=== PATIENT | female | born 1985 | race Caucasian/White ===

== ENCOUNTER 2017-04-05 22:49 | Emergency (ER) | payer BC ==
--- NOTE | 2017-04-05 23:40 | ER Document Report ---
ED General - General Chief Complaint: Headache Stated Complaint: HEAD PAIN Time Seen by Provider: 04/05/17 23:39 Information source: Patient TRAVEL OUTSIDE OF THE [place] IN LAST 30 DAYS: No - HPI Notes: Pt presents with c/o Headache x 4 days. States that pain is mostly in front. No hx of migraines. Pt is hypertensive- no hx of hypertension. A/O, answers questions. Appears to be uncomfortable. No head injury, numbness, paresthesia, focal weakness, chest pain, difficulty breathing, fever, chills, cough, congestion. Patient has no history of medication use besides control pills which are unchanged and occasional Excedrin migraine. Family history no aneurysms or CVA. No significant weight loss or weight gain. No seasonal allergies. Past Medical History - General Information source: Patient - Social History Smoking Status: Never Smoker Frequency of alcohol use: None Drug Abuse: None Lives with: Friend Family History: Reviewed & Not Pertinent Renal/ Medical History: Denies: Hx Peritoneal Dialysis Review of Systems - Review of Systems Notes: REVIEW OF SYSTEMS: CONSTITUTIONAL : Denies fever, chills, or sweats. Denies recent illness. EENT: Denies eye, ear, throat, or mouth pain or symptoms. Denies nasal or sinus congestion or discharge. Denies throat, tongue, or mouth swelling or difficulty swallowing. CARDIOVASCULAR: Denies chest pain. Denies palpitations or racing or irregular heart beat. Denies ankle edema. RESPIRATORY: Denies cough, cold, or chest congestion. Denies shortness of breath, difficulty breathing, or wheezing. GASTROINTESTINAL: Denies abdominal pain or distention. Denies nausea, vomiting , or diarrhea. Denies blood in vomitus, stools, or per rectum. Denies black, tarry stools. Denies constipation. GENITOURINARY: Denies difficulty urinating, painful urination, burning, frequency, blood in urine, or discharge. FEMALE GENITOURINARY: Denies vaginal bleeding, heavy or abnormal periods, irregular periods. Denies vaginal discharge or odor. MUSCULOSKELETAL: Denies back or neck pain or stiffness. Denies joint pain or swelling. SKIN: Denies rash, lesions or sores. HEMATOLOGIC : Denies easy bruising or bleeding. LYMPHATIC: Denies swollen, enlarged glands. NEUROLOGICAL: Denies confusion or altered mental status. Denies passing out or loss of consciousness. Denies dizziness or lightheadedness. Denies weakness or paralysis or loss of use of either side. Denies problems with gait or speech. Denies sensory loss, numbness, or tingling. Denies seizures. PSYCHIATRIC: Denies anxiety or stress. Denies depression, suicidal ideation, or homicidal ideation. ALL OTHER SYSTEMS REVIEWED AND NEGATIVE. Dictation was performed using [employer] voice recognition software Physical Exam - Vital signs Vitals: Temp Pulse Resp BP Pulse Ox 98.7 F 83 18 186/109 H 100 04/05/17 23:09 04/05/17 23:09 04/05/17 23:09 04/05/17 23:09 04/05/17 23:09 - Notes Notes: PHYSICAL EXAMINATION: GENERAL: Well-appearing, well-nourished and in no acute distress. HEAD: Atraumatic, normocephalic. No maxillary or frontal sinus tenderness. No temporal arterial tenderness. There may be mild TMJ joint tenderness, although she describes her pain is more frontal and generalized. Anterior chambers are within normal limits. EYES: Pupils equal round and reactive to light, extraocular movements intact, conjunctiva are normal. ENT: Nares patent, oropharynx clear without exudates. Moist mucous membranes. Tympanic membranes clear. NECK: Normal range of motion, supple without lymphadenopathy LUNGS: Breath sounds clear to auscultation bilaterally and equal. No wheezes rales or rhonchi. HEART: Regular rate and rhythm without murmurs ABDOMEN: Soft, nontender, nondistended abdomen. No guarding, no rebound. No masses appreciated. Female : deferred Musculoskeletal: Normal range of motion, no pitting or edema. No cyanosis. NEUROLOGICAL: Cranial nerves grossly intact. Normal speech, normal gait. Normal sensory, motor exams. No cerebellar ataxia. Normal reflexes. PSYCH: Normal mood, normal affect. SKIN: Warm, Dry, normal turgor, no rashes or lesions noted. Course - Re-evaluation Re-evalutation: 04/06/17 04:05 Patient was given Flexeril Dilaudid and Toradol lisinopril Reglan morphine and Zofran with adequate relief of her headache and her blood pressure was improved on repeat exam. No evidence for end-stage renal disease or significant anemia or electrolyte imbalance or acute intracranial injury or hemorrhage or CVA. One questions TMJ joint syndrome versus headache secondary to mild hypertension. No clinical suggestion for meningitis or subarachnoid hemorrhage given the intermittent episodes of the headache. 04/06/17 04:12 - Vital Signs Vital signs: Temp Pulse Resp BP Pulse Ox 98.7 F 83 24 H 129/77 H 98 04/05/17 23:09 04/05/17 23:09 04/06/17 03:01 04/06/17 03:01 04/06/17 03:01 - Laboratory Result Diagrams: 04/06/17 00:10 04/06/17 00:10 Laboratory results interpreted by me: 04/06/17 00:10 Lymphocytes % 47.6 H Discharge - Discharge Clinical Impression: Headache Qualifiers: Headache type: other headache syndrome Qualified Code(s): G44.89 - Other headache syndrome Hypertension Qualifiers: Hypertension type: essential hypertension Qualified Code(s): I10 - Essential ( primary) hypertension TMJ arthralgia Qualifiers: Laterality: bilateral Qualified Code(s): M26.623 - Arthralgia of bilateral temporomandibular joint Condition: Stable Disposition: HOME, SELF-CARE Admitting Provider: Surgicalist Instructions: Antinausea Medication ([facility]), Headache ([facility]), High Blood Pressure ([facility]) Prescriptions: Cyclobenzaprine HCl [Flexeril 10 mg Tablet] 10 mg PO QHS #20 tablet Acetaminophen with Codeine [Tylenol #3 Tablet] 1 each PO Q4HP PRN #20 tablet PRN Reason: Ondansetron [Zofran Odt 4 mg Tablet] 1 tab PO Q8HP PRN #10 tab.rapdis PRN Reason: For Nausea/Vomiting Lisinopril 10 mg PO DAILY #30 tablet Forms: Return to Work
[2017-04-05] MEDS ORDERED: ONDANSETRON HCL INJ/PF 4 MG/2 ML SDV IV ONE (23:58)
[2017-04-05] MEDS ORDERED: HYDROMORPHONE HCL INJ/PF 2 MG/ML AMPULE IV ONE (23:58)
[2017-04-06 00:25] LABS: ABSOLUTE EOSINOPHILS # (AUTO) 0.2 10^3/uL (0.0-0.6); ABSOLUTE LYMPHOCYTES (AUTO) 2.9 10^3/uL (0.5-4.7); ABSOLUTE MONOCYTES (AUTO) 0.4 10^3/uL (0.1-1.4); ABSOLUTE NEUT (AUTO) 2.6 10^3/uL (1.7-8.2); BASOPHILS % (AUTO) 0.6 % (0-2); EOSINOPHILS % (AUTO) 2.6 % (0-6); HEMATOCRIT 36.7 % (36.0-47.0); HEMOGLOBIN 12.4 g/dL (12.0-15.5); HGB HCT DIFFERENCE 0.5; LYMPHOCYTES % (AUTO) 47.6 % (13-45); MEAN CORPUSCULAR HEMOGLOBIN 28.1 pg (27.0-33.4); MEAN CORPUSCULAR HGB CONC 33.7 g/dL (32.0-36.0); MEAN CORPUSCULAR VOLUME 83 fl (80-97); MONOCYTES % (AUTO) 6.8 % (3-13); RED CELL DISTRIBUTION WIDTH 13.9 % (11.5-14.0); SEGMENTED NEUTROPHILS % (AUTO) 42.4 % (42-78); WHITE BLOOD COUNT 6.1 10^3/uL (4.0-10.5)
[2017-04-06 00:37] LABS: ALANINE AMINOTRANSFERASE 30 U/L (9-52); ALBUMIN 3.7 g/dL (3.5-5.0); ALKALINE PHOSPHATASE 121 U/L (38-126); ANION GAP 9 (5-19); ASPARTATE AMINO TRANSFERASE 18 U/L (14-36); BILIRUBIN,DIRECT 0.2 mg/dL (0.0-0.4); BILIRUBIN,TOTAL 0.3 mg/dL (0.2-1.3); BLOOD UREA NITROGEN 9 mg/dL (7-20); CALCIUM 9.3 mg/dL (8.4-10.2); CARBON DIOXIDE 27 mmol/L (22-30); CHLORIDE 103 mmol/L (98-107); CREATININE RESULT 0.67 mg/dL (0.52-1.25); GLUCOSE 107 mg/dL (75-110); POTASSIUM 3.8 mmol/L (3.6-5.0); SODIUM 138.8 mmol/L (137-145); TOTAL PROTEIN 6.3 g/dL (6.3-8.2)
--- NOTE | 2017-04-06 01:02 | RADIOLOGY REPORT (SQ) ---
EXAM DESCRIPTION: CT HEAD WITHOUT COMPLETED DATE/TIME: 04/06/2017 12:40 am REASON FOR STUDY: headache, hypertension COMPARISON: None. TECHNIQUE: Axial images acquired through the brain without intravenous contrast. Images reviewed wi th bone, brain and subdural windows. Images stored on PACS. All CT scanners at this facility use dose modulation, iterative reconstruction, and/or weight based d osing when appropriate to reduce radiation dose to as low as reasonably achievable (ALARA). [facility]: Dose Right [facility]: CareDose [facility]: Dose Right [facility]: Teradose 4D [facility]: Interactivo RADIATION DOSE: 64.61 mGy. LIMITATIONS: None. FINDINGS: VENTRICLES: Normal size and contour. CEREBRUM: No masses. No hemorrhage. No midline shift. Normal shelley/white matter differentiation. N o evidence for acute infarction. CEREBELLUM: No masses. No hemorrhage. No alteration of density. No evidence for acute infarction. EXTRAAXIAL SPACES: No fluid collections. No masses. ORBITS AND GLOBE: No intra- or extraconal masses. Normal contour of globe without masses. CALVARIUM: No fracture. PARANASAL SINUSES: No fluid or mucosal thickening. SOFT TISSUES: No mass or hematoma. OTHER: No other significant finding. IMPRESSION: NORMAL BRAIN CT WITHOUT CONTRAST. TECHNICAL DOCUMENTATION: JOB ID: [id number] Quality ID # [id number]: Final reports with documentation of one or more dose reduction techniques (e.g., Au tomated exposure control, adjustment of the mA and/or kV according to patient size, use of iterative reconstruction technique) 2010 [employer]- All Rights Reserved
[2017-04-06] MEDS ORDERED: CYCLOBENZAPRINE HCL 10 MG TABLET PO ONE (01:11)
[2017-04-06] MEDS ORDERED: LISINOPRIL 10 MG TABLET PO ONE (01:11)
[2017-04-06] MEDS ORDERED: KETOROLAC TROMETHAMINE INJ/PF 30 MG/1 ML SDV IV ONE (01:11)
[2017-04-06] MEDS ORDERED: MORPHINE SULFATE 10 MG/ML INJ IV ONE (03:41)
[2017-04-06] MEDS ORDERED: METOCLOPRAMIDE HCL INJ/PF 10 MG/2 ML SDV IV ONE (03:42)
[2017-04-06 04:06] VITALS: BP 134/84
== END 2017-04-06 04:24 | disposition home or self-care (01) ==
LOC: ER 22:49
DX: G44.89 Other headache syndrome (principal); M26.623 Arthralgia of bilateral temporomandibular joint; I10 Essential (primary) hypertension; Z79.3 Long term (current) use of hormonal contraceptives
CPT/HCPCS: 99284; 36415; 84703; 85025; 80053; 70450; J1885; J2765; J2270; J1170; J2405

== ENCOUNTER 2019-10-03 06:25 | Emergency (ER) | payer BC ==
--- NOTE | 2019-10-03 07:27 | ER Document Report ---
ED ENT - General Chief Complaint: Sore Throat Stated Complaint: DIFFICULTY SWALLOWING Information source: Patient Notes: Patient is a 34-year-old who claims that she has had some discomfort when swallowing for several weeks. Denies actually a sore throat feels that his lower in her lower neck area. Eyes any chest pain shortness of breath or other complaints TRAVEL OUTSIDE OF THE [place] IN LAST 30 DAYS: No - HPI Patient complains to provider of: Throat problem Onset: Last week Onset/Duration: Gradual. denies: Sudden, Constant, Intermittent, Persistent, Waxing and waning, Better, Worse, Gone Quality of pain: Achy. denies: Dull, Sharp, Stabbing, Other Severity: Mild Context: denies: Allergies, Injury, Recent Illness, Travel, Other Location of pain: Throat. No: Ears, Face, Jaw, Neck, Nose, Sinus, Tooth, Other Associated symptoms: denies: None, Barotrauma, Broken tooth, Chills, Congestion, Cough, Dental pain, Dental caries, Difficulty swallowing, Dizziness, Drooling, Ear pain, Ear drainage, Ear trauma, Face swelling, Fever, Foreign body, Hearing loss, Headache, Hoarse voice, Jaw pain, Jaw swelling, Motion sickness, Neck pain, Nose bleed, Runny nose, Sinus pain, Sinus drainage, Sore throat, Stiff neck, Swollen glands, Tinnitus, Vertigo, Other - Related Data Allergies/Adverse Reactions: lidocaine Allergy (Verified 10/03/19 07:24) Past Medical History - Social History Smoking Status: Never Smoker Family History: Reviewed & Not Pertinent Patient has suicidal ideation: No Patient has homicidal ideation: No Renal/ Medical History: Denies: Hx Peritoneal Dialysis Review of Systems - Review of Systems Constitutional: denies: No symptoms reported, See HPI, Chills, Diaphoresis, Fever, Malaise, Weakness, Other, Weight gain, Weight loss, Recent illness EENT: Difficulty swallowing. denies: No symptoms reported, See HPI, Eye pain, Eye discharge, Blurred vision, Tearing, Double vision, Ear pain, Ear discharge, Nose pain, Nose congestion, Nose discharge, Sinus pressure, Sinus discharge, Throat pain, Throat swelling, Mouth pain, Mouth swelling, Dental problem, Vertigo, Other Cardiovascular: denies: No symptoms reported, See HPI, Chest pain, Palpitations, Heart racing, Orthopnea, Dyspnea, Syncope, Dizziness, Lightheaded, Edema, Other, Paroxysmal Nocturnal Dysp Respiratory: denies: No symptoms reported, See HPI, Cough, Hurts to breathe, Hemoptysis, Short of breath, Sputum, Stridor, Wheezing, Other -: Yes All other systems reviewed and negative Physical Exam - Vital signs Vitals: Temp Pulse BP Pulse Ox 98.7 F 94 137/88 H 96 10/03/19 07:02 10/03/19 07:02 10/03/19 07:02 10/03/19 07:02 Notes: PHYSICAL EXAMINATION: GENERAL: Well-appearing, well-nourished and in no acute distress. HEAD: Atraumatic, normocephalic. EYES: Pupils equal round and reactive to light, extraocular movements intact, sclera anicteric, conjunctiva are normal. ENT: nares patent, oropharynx clear without exudates. Moist mucous membranes. NECK: Normal range of motion, supple without lymphadenopathy. There is a normal swallowing reflex. Thyroid appears without nodules or masses on exam LUNGS: Breath sounds clear to auscultation bilaterally and equal. No wheezes rales or rhonchi. HEART: Regular rate and rhythm without murmurs ABDOMEN: Soft, nontender, normoactive bowel sounds. No guarding, no rebound. No masses appreciated. EXTREMITIES: Normal range of motion, no pitting or edema. No cyanosis. NEUROLOGICAL: No focal neurological deficits. Moves all extremities spontaneously and on command. PSYCH: Normal mood, normal affect. SKIN: Warm, Dry, normal turgor, no rashes or lesions noted. Course - Vital Signs Vital signs: Temp Pulse Resp BP Pulse Ox 98.7 F 94 137/88 H 96 10/03/19 07:02 10/03/19 07:02 10/03/19 07:02 10/03/19 07:02 - Diagnostic Test Radiology reviewed: Image reviewed, Reports reviewed Discharge - Discharge Clinical Impression: Dysphagia Qualifiers: Dysphagia type: pharyngeal phase Qualified Code(s): R13.13 - Dysphagia, pharyngeal phase Condition: Stable Disposition: HOME, SELF-CARE Instructions: Acid-Suppressing Medication ([facility]) Additional Instructions: Follow-up with your nose and throat doctor to be scoped for possible mass as discussed medications as directed follow-up with your regular doctor. Prescriptions: Ranitidine HCl [Zantac] 150 mg PO Q12 #30 tablet
--- NOTE | 2019-10-03 08:46 | RADIOLOGY REPORT (SQ) ---
EXAM DESCRIPTION: SOFT TISSUE NECK COMPLETED DATE/TIME: 10/03/2019 7:17 am REASON FOR STUDY: dysphagia please do ap and lateral COMPARISON: None. NUMBER OF VIEWS: Two views. TECHNIQUE: AP and lateral radiographic image of the soft tissues of the neck. LIMITATIONS: None. FINDINGS: EPIGLOTTIS: Normal. Contour normal. Aryepiglottic folds normal. PREVERTEBRAL SOFT TISSUES: Normal. No soft tissue swelling. SUBGLOTTIC AREA: Normal. No narrowing. RETROPHARYNGEAL SPACE: Normal. No soft tissue masses. BONES: No significant findings. LUNG APICES: Normal. OTHER: No radiopaque foreign body. No other significant finding. IMPRESSION: No radiographic abnormality of the cervical soft tissues or included upper airway. TECHNICAL DOCUMENTATION: JOB ID: [id number] [facility]- All Rights Reserved Reading location - IP/workstation name: [email or web address]
[2019-10-03 09:13] VITALS: BP 138/87
== END 2019-10-03 09:11 | disposition home or self-care (01) ==
LOC: ER 06:25
DX: R13.13 Dysphagia, pharyngeal phase (principal); Z88.4 Allergy status to anesthetic agent
CPT/HCPCS: 70360; 99283

== ENCOUNTER → 2019-10-18 | Outpatient (CLI) | payer BC ==
--- NOTE | 2019-10-18 08:53 | RADIOLOGY REPORT (SQ) ---
EXAM DESCRIPTION: SABRINA SWALLOW COMPLETED DATE/TIME: 10/18/2019 8:37 am REASON FOR STUDY: DYSPHAGIA, UNSPECIFIED R13.10 DYSPHAGIA, UNSPECIFIED COMPARISON: None. TECHNIQUE: Videofluoroscopic swallowing examination was performed in conjunction with speech patholo gy. Videofluoroscopic imaging was obtained and reviewed and these are the findings: RADIATION DOSE: Fluoro time 1.54 minutes 1 images saved to PACS. LIMITATIONS: None FINDINGS: The patient was brought into the fluoro room and placed upright on a modified barium swall ow chair. The patient was then given multiple consistencies mixed with barium to swallow under live fluoroscopic video guidance. According to the Speech Pathologist there was intermittent laryngeal pe netration seen with thin barium. All other consistencies swallowed without incident. No aspiration identified. Please refer to the speech pathology report for further details. IMPRESSION: INTERMITTENT LARYNGEAL PENETRATION, WITHOUT ASPIRATION, SEEN WITH THIN BARIUM. PLEASE SE E SPEECH PATHOLOGIST REPORT FOR OTHER FINDINGS AND RECOMMENDATIONS. COMMENT: None Quality ID [id number]: Final reports for procedures using fluoroscopy that document radiation exposure dawson mariann, or exposure time and number of fluorographic images (if radiation exposure indices are not avail able) TECHNICAL DOCUMENTATION: JOB ID: [id number] [email or web address]- All Rights Reserved Reading location - IP/workstation name: [email or web address] [id number]
--- NOTE | 2019-10-18 14:11 | ST Modified Barium Swallow ---
Recommendation - Recommendations Recommendations: No oral or pharyngeal deficits seen in swallowing. Recommend continuing to follow reflux precautions due to nature of swallowing difficulties. May benefit from GI consult. Medical Diagnoses - Medical Diagnoses Medical Diagnosis Description & ICD-10 Code(s): dysphagia R13.10 Other Medical Diagnoses/Co-Morbidities: per patient report: reflux ST Modified Barium Swallow - General Date: 10/18/19 Referring Physician: Dr. Villatoro Risks/Precautions: None Date of Onset: 11/14/16 - approximate onset date Reason for Referral: difficulty swallowing - History -: Medical - Patient acted as her own historian. She states that swallowing difficulty began in early 2016, at the time she started lisinopril, which caused her to cough frequently. She does report that swallowing difficulty has recently gotten worse. The patient reports that "stuff getting stuck, mainly pills". She states this tends to happen with solids rather than liquids, although some coughing with drinking is reported. Medications: per patient report: omperazole (new), effexor, benicar, sprintec Allergies: lidocaine, polysporin - Functional Status Prior Functional Status: INDEPENDENT: feeding - independent Current Functional Limitations: feeding - globus sensation - Subjective Patient/caregiver goal(s): better swallow Speech Intelligibility: WNL Current Nutritional Means: PO Current PO diet: Regular Current symptoms: c/o Globus sensation Pain: Patient reports, 0/5 - Objective Assessment: Upright, Left Lateral - Food Trials Used Food trials used: Thin liquids, Pureed, Regular The patient: Was Able to Self Feed - Oral-Motor Skills Dentition: Partial Velo-pharyngeal function: Unremarkable Laryngeal Function: clear voicing - Assessment Oral prep: Normal Labial closure: Adequate Leakage: None Mastication: Adequate Lingual Movement: Normal Oral stage: Normal for this Procedure - Pharyngeal Stage Initiation of Pharyngeal Stage Reflex: Normal Decreased laryngeal elevation: No Reduced Velopharyngeal Closure: no Reduced pressure generation: No reduced tongue-based retraction: No Pre-swallow pooling in valleculae: None Pre-Swallow pooling in pyriforms: None Reduced Thyro-Hyoid approximation: No Reduced epiglottic excursion: No Reduced pharyngeal peristalsis/contraction: No Post-swallow residulas vallecular: None Post-Swallow residuals in pyriforms: None - Fall Risk Assessment Medications/Conditions that increase fall risks include: Antidepressants, sedatives, anti-arrhythmic, diuretic, benzodiazipenes, neuroleptics. BP regulation problems, cardiac problems, balance or gait deficits, neurological problems. Is patient considered at risk for falls: no Fall Risk Actions Taken: No action needed - Behavioral Observations During evaluation process patient: was pleasant, was cooperative, able to answer questions, provided medical history - Treatment / Educational Needs: Treatment/Education Needs: Treatment consisted of patient education on the role of the Speech Pathologist. Patient's plan of care and golas were communicated as well as scheduling and attendance policies. Recommendations for initial home program were shared. Patient demonstrated understanding and verbalized agreement. - Impression/Summary Laryngeal Penetration: Yes - intermittent flash penetration seen on subsequent straw sips of thin liquid only Tracheal Aspiration: no Patient presents with: Normal swallow at eval Risk of Aspiration: Minimal Evaluation and Findings: No oral or pharyngeal phase deficits seen. Recommend patient continue with reflux medications and precautions and set forth by physician due to nature of swallowing deficits. Patient may benefit from GI consult due to nature of symptoms and lack of pharyngeal component. - Recommendations Solid diet recommendations: Regular Liquid Diet Modification: Thin Pt/Family education and followup with MD: Yes Dysphagia therapy with LICENSED FUNERAL DIRECTOR AND EMBALMER: no Reflux Precautions: Taught to Patient Recommended techniques: Fully Upright During Meal, Small Bites and Sips, Alternate Bites/Sips Information, Precautions and Recommendations: Patient (Written), Patient (Verbal) - Plan of Care Strategies to optimize patient understanding include:: ongoing assessment of educational needs, implementation of educational strategies, and re-education. - - -: Thank you for the opportunity to work with this patient and his/her family. Should you have any questions about this patient's plan or progress, I can be reached at [phone].
== END ==
LOC: RAD 08:03
PROVIDERS: ATTEND Otolaryngology
DX: R13.10 Dysphagia, unspecified (principal)
CPT/HCPCS: 74230

== ENCOUNTER 2019-10-29 02:37 | Emergency (ER) | payer BC ==
[2019-10-29] MEDS ORDERED: FAMOTIDINE 20 MG TABLET PO ONE (06:42)
[2019-10-29] MEDS ORDERED: DIPHENHYDRAMINE HCL 25 MG CAPSULE PO ONE (06:42)
[2019-10-29] MEDS ORDERED: DEXAMETHASONE SOD PHOS INJ 10 MG/1 ML VIAL IM ONE ×2 (06:42→07:14)
--- NOTE | 2019-10-29 07:27 | ER Document Report ---
ED Allergic Reaction - General Chief Complaint: Allergic Reaction Stated Complaint: ALLERGIC REACTION Time Seen by Provider: 10/29/19 06:27 Primary Care Provider: NIKOLAI NEWELL FNP [Primary Care Provider] - Follow up as needed Notes: 34-year-old female presents with possible allergic reaction. Patient states she had a small hive that started on her left forearm and woke up at approximately 130 this morning with hives all over her body. Patient denies any throat/tongue/lip swelling or dyspnea. Patient denies any new detergents, soaps, shampoos. Patient states she has recently started a new medication ome prazole approximately 2 weeks ago. TRAVEL OUTSIDE OF THE [place] IN LAST 30 DAYS: No - Related Data Allergies/Adverse Reactions: lidocaine Allergy (Verified 10/03/19 07:24) Home Medications: omeprazole-started 2 weeks ago. effexor. bcp. hctz Past Medical History - Social History Smoking Status: Never Smoker Chew tobacco use (# tins/day): No Frequency of alcohol use: None Drug Abuse: None Family History: Reviewed & Not Pertinent Patient has suicidal ideation: No Patient has homicidal ideation: No Renal/ Medical History: Denies: Hx Peritoneal Dialysis Review of Systems - Review of Systems Notes: Constitutional: Negative for fever. HENT: Negative for sore throat. Eyes: Negative for visual changes. Cardiovascular: Negative for chest pain. Respiratory: Negative for shortness of breath. Gastrointestinal: Negative for abdominal pain, vomiting or diarrhea. Genitourinary: Negative for dysuria. Musculoskeletal: Negative for back pain. Skin: Positive for rash. Neurological: Negative for headaches, weakness or numbness. 10 point ROS negative except as marked above and in HPI. Physical Exam - Vital signs Vitals: Temp Pulse Resp BP Pulse Ox 98.7 F 100 18 155/98 H 97 10/29/19 02:44 10/29/19 02:44 10/29/19 02:44 10/29/19 02:44 10/29/19 02:44 - Notes Notes: GENERAL: Well-appearing, well-nourished and in no acute distress. Speaks full sentences without difficulty. HEAD: Atraumatic, normocephalic. EYES: Extraocular movements intact, sclera anicteric, conjunctiva are normal. ENT: Oropharynx clear without exudates. Moist mucous membranes. No tongue swelling. NECK: Normal range of motion, supple without lymphadenopathy or JVD. LUNGS: Breath sounds clear to auscultation bilaterally and equal. No wheezes rales or rhonchi. Accessory muscle use. No tripoding. No cyanosis. HEART: Regular rate and rhythm without murmurs, rubs or gallops. ABDOMEN: Soft, nontender. No guarding, no rebound. No masses appreciated. EXTREMITIES: Normal range of motion, no pitting or edema. No clubbing or cyanosis. NEUROLOGICAL: Cranial nerves II through XII grossly intact. Normal speech, normal gait. PSYCH: Normal mood, normal affect. SKIN: Generalized hives/urticaria noted all over body. Course - Re-evaluation Re-evalutation: 10/29/19 34-year-old female presents with generalized urticaria/hives. Patient has no throat or tongue swelling or shortness of breath. Patient is nontoxic, well-appearing. Patient speaks full sentences without difficulty. No signs of respiratory distress. Decadron, Pepcid, Benadryl ordered. 10/29/19 08:41 Hives have improved. Will discharge pt with prednisone and EpiPen. Pt instructed to stop omeprazole and will switch to a different medication. Pt given strict return precautions and close follow up with PCP. Pt voices understanding and agrees with plan of care. - Vital Signs Vital signs: Temp Pulse Resp BP Pulse Ox 97.8 F 97 16 141/89 H 100 10/29/19 05:30 10/29/19 05:30 10/29/19 05:30 10/29/19 05:30 10/29/19 05:30 Discharge - Discharge Clinical Impression: Hives Allergic reaction Qualifiers: Encounter type: initial encounter Qualified Code(s): T78.40XA - Allergy, unspecified, initial encounter Condition: Stable Disposition: HOME, SELF-CARE Instructions: Acute Allergic Reaction ([facility]) Additional Instructions: Please take prednisone as prescribed. Please take [id number] Benadryl, Claritin, Zyrtec, or Chayo for itching. Please use EpiPen if you start having any anaphylactic reactions. Please stop taking the omeprazole and start ranitidine. Please follow-up with your primary care doctor in 3 to 5 days. Please return to ER immediately if you start having any worsening symptoms, including lip/tongue/throat swelling, shortness of breath, abdominal pain, nausea/vomiting fever, chest pain, or any other symptoms that are concerning to you. Prescriptions: Prednisone [Deltasone 20 mg Tablet] 2 tab PO BID 7 Days #28 tablet Epinephrine [Epipen 2-Alvin] 0.3 mg IM ONCE PRN #1 kit PRN Reason: Ranitidine HCl [Zantac] 150 mg PO BID #30 tablet Forms: Return to Work Referrals: NIKOLAI NEWELL FNP [Primary Care Provider] - Follow up in 3-5 days
[2019-10-29 09:03] VITALS: BP 117/68
== END 2019-10-29 09:01 | disposition home or self-care (01) ==
LOC: ER 02:37
DX: L50.9 Urticaria, unspecified (principal); T78.40XA Allergy, unspecified, initial encounter; X58.XXXA Exposure to other specified factors, initial encounter; Z79.899 Other long term (current) drug therapy
CPT/HCPCS: 96372; 99283; J1100

== ENCOUNTER → 2020-04-10 | Outpatient (CLI) | payer BC ==
[2020-04-10 10:28] VITALS: BP 141/84
--- NOTE | 2020-04-10 10:28 | ER RDC ASSESSMENT REPORT ---
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 [employer] --Occupation?: has had a known contact works in [place] - Symptoms Subjective Fever([place]ry feverish): Yes Chills: Yes Muscule Aches: No Runny Nose: Yes Sore Throat: No Cough (New or worsening chronic cough): Yes --How many day(s)?: reports a dry cough Shortness of breath: Yes Nausea or Vomiting: No Headache: No Abdominal Pain: Yes - Do you have any of the following Chronic lung disease: Asthma or emphysema or COPD: No Cystic Fibrosis: No Diabetes: No High Blood Pressure: Yes Cardiovascular Disease: Yes Chronic Kidney Disease: No Chronic Liver Disease: No Chronic blood disorder like Sickle Cell Disease: No Weak immune system due to disease or medication: No Neurologic condition that limits movement: No Developmental delay - Moderate to Severe: No Recent (within past 2 weeks) or current : No Morbid Obesity (>100 pounds over ideal weight): Yes Obesity Comment: Height 5 feet 2 inches 280 pounds - Objective Temperature: 98.3 F Pulse Rate: 72 Respiratory Rate: 20 Blood Pressure: 141/84 O2 Sat by Pulse Oximetry: 97 Objective: Given above, testing performed: If Testing Performed: Test Specimen Type Sent to General - General Information source: Patient Notes: At [facility] for COVID testing started feeling ill with upper respiratory symptoms fever dry cough on Tuesday. 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 Had little or no reported symptoms has not been tested. Plans to call primary care provider at [facility] today. Contacted her at this point. - Related Data Allergies/Adverse Reactions: lidocaine Allergy (Verified 10/03/19 07:24) Past Medical History - General Information source: Patient - Social History Smoking Status: Never Smoker Family History: Reviewed & Not Pertinent Renal/ Medical History: Denies: Hx Peritoneal Dialysis Physical Exam - General General appearance: Appears well, Alert In distress: None Notes: PHYSICAL EXAMINATION: GENERAL: Well-appearing and in no acute distress. HEAD: Atraumatic, normocephalic. EYES: sclera anicteric, conjunctiva are normal. ENT: nares patent. Moist mucous membranes. NECK: Normal range of motion, supple without lymphadenopathy LUNGS: CTAB and equal. No wheezes rales or rhonchi. Resp even and unlabored. Lung sounds clear. Occassional dry cough with deep breaths. HEART: Regular rate and rhythm without murmurs ABDOMEN: Soft, nontender, normal bowel sounds, no guarding. EXTREMITIES: No cyanosis. NEUROLOGICAL: Normal speech. PSYCH: Normal mood, normal affect. SKIN: Warm, Dry, normal turgor, Diagnostic Results Laboratory Results: Informed of Negative rapid strep negative rapid flu results that pending strep culture pending COVID testing results. Patient provided instructions regarding COVID to include: As a person under investigation for Covid 19, the [place] department of Health and Human Services, division of public health advises you to adhere to the following guidance until your test results are reported to you. If your test result is positive, you will receive additional information from your provider and your local health department at that time. Remain at home until you are cleared by the health provider or public health authorities. Keep a log of visitors to your home, notify any visitors to your home of your isolation status. If you plan to move to a new address or leave the county, notify the local health department in your County. Call your doctor or seek care if you have an urgent medical need. Before seeking medical care, call ahead to get instructions from the provider before arriving at the medical office clinic or hospital. Notify them that you are being tested for the virus that causes Covid 19 so that arrangements can be made, as necessary, to prevent transmission to others in the healthcare setting. Next, notify the local health department in your county. If a medical emergency arises and you need to call 911, inform the first responders that you are being tested for the virus that causes Covid 19. Next, notify the local health department in your county. Patient Education/Counseling Counseling/Education: Patient presents with upper respiratory symptoms worrisome for possible Covid 19. Patient does not have emergency worring symptoms such as difficulty breathing, shortness of breath, chest pain, pressure, confusion or cyanosis. Patient appears suitable for discharge. Patient instructed to follow up with PCP at today. To ED for persistent or worsening symptoms. Patient's vital signs are stable and patient is nontoxic in appearance. Good return precautions have been discussed with patient, patient verbalized understanding and is agreeable with discharge plan of care at this time. RDC Discharge - Discharge Clinical Impression: COVID - 19 SCREENING Condition: Stable Disposition: Home; Selfcare
[2020-04-10 11:31] LABS: A TYPE INFLUENZA AG NEGATIVE (NEGATIVE); B INFLUENZA AG NEGATIVE (NEGATIVE)
== END ==
LOC: RDC 10:00
PROVIDERS: ATTEND Nurse Practitioner Family
DX: Z20.828 Contact with and (suspected) exposure to other viral communicable diseases (principal); R50.9 Fever, unspecified; R05 Cough; R06.02 Shortness of breath; R09.89 Other specified symptoms and signs involving the circulatory and respiratory systems; R10.9 Unspecified abdominal pain; I10 Essential (primary) hypertension; E66.01 Morbid (severe) obesity due to excess calories
CPT/HCPCS: 87070; 87635; 87804; 87880; 99211; C9803